=== PATIENT | female | born 1935 | race Caucasian/White ===

== ENCOUNTER 2018-04-10 17:50 | Observation (INO) | payer MEDICARE ==
[~2018-04-10] VITALS: Ht 167.6 cm; Wt 65.0 kg
[2018-04-10] MEDS ORDERED: IOHEXOL 350 MG/ML 10 ML VIAL (for RAD DIAG) IVCONTRAST ONE (17:51)
[2018-04-10 17:57] VITALS: BP 170/73; PULSE 74; RESP 14; TEMP 97.6; O2SAT 98
--- NOTE | 2018-04-10 18:16 | PD ---
HPI Chief Complaint: Chest Pain Time Seen by Provider: 18:07 Travel History International Travel<30 days: No Contact w/Intl Traveler<30days: No Traveled to known affect area: No History of Present Illness HPI 82yo F with PMH of parkinson's disease, trigeminal neuralgia on carbamazepine, HTN, rheumatoid arthritis presents to the ED with c/o midsternal chest pain that started about an hour ago. Said it was pressure, constant and associated with sob and nausea. She took a sublingual nitro, and then vomited and had a syncopal episode after. Pt had been having a frontal headache and bilateral neck pain since last night. Said the headache has resolved but still has neck pain. Denies any fever, cough, abdominal pain, focal weakness or numbness. Pt said she does have fibromyalgia and she does have neck pain sometimes. PFSH Past Medical History Cardiovascular Problems: Yes (HTN, ) Cerebrovascular Accident: Yes ?: Not Social History Tobacco Use: No Allergies-Medications (Allergen,Severity, Reaction): Coded Allergies: Penicillins (Verified Allergy, Severe, 04/10/18) aspirin (Verified Allergy, Severe, 04/10/18) Reported Meds & Prescriptions Reported Meds & Active Scripts Active Reported Clonidine 168 HR Patch (Clonidine HCl) Unknown Strength Patch 1 Patch T-DERMAL Q7D Fridays Aldactone (Spironolactone) 25 Mg Tab 25 Mg PO BID Nifedipine ER 24 HR (Nifedipine) 30 Mg Tab 30 Mg PO DAILY Tegretol (Carbamazepine) 200 Mg Tab 200 Mg PO BID Cipro (Ciprofloxacin HCl) 250 Mg Tab 250 Mg PO BID Prednisone 10 Mg Tab 10 Mg PO DAILY Eye Allergy Relief 0.025-0.3 % (Naphazoline W/ Pheniramine) 0.025 %-0.3 % Leny 1 Drop EACH EYE DAILY PRN Lyrica (Pregabalin) 100 Mg Cap 100 Mg PO DAILY Hydralazine (Hydralazine HCl) 100 Mg Tab 100 Mg PO TID Take with meals Plaquenil (Hydroxychloroquine Sulfate) 200 Mg Tab 200 Mg PO BID Take with food Sinemet (Carbidopa-Levodopa) 25-100 Mg Tab 1 Tab PO QID Eliquis (Apixaban) 5 Mg Tab 2.5 Mg PO BID Review of Systems Except as stated in HPI: all other systems reviewed are Neg Physical Exam Narrative GENERAL: 82yo F in mild distress. SKIN: Focused skin assessment warm/dry. HEAD: Atraumatic. Normocephalic. EYES: Pupils equal and round at 3mm bilaterally. EOMI. ENT: No nasal bleeding or discharge. Mucous membranes pink and moist. NECK: Diffuse ttp posterior neck. CARDIOVASCULAR: Regular rate and rhythm. No murmur appreciated. RESPIRATORY: No accessory muscle use. Clear to auscultation. Breath sounds equal bilaterally. GASTROINTESTINAL: Abdomen soft, non-tender, nondistended. MUSCULOSKELETAL: No obvious deformities. No clubbing. No cyanosis. No edema. NEUROLOGICAL: Awake and alert. No obvious cranial nerve deficits. Motor grossly within normal limits in all extremities. Sensation equal. Normal speech. PSYCHIATRIC: Appropriate mood and affect; insight and judgment normal. Data Data Last Documented VS Vital Signs Date Time Temp Pulse Resp B/P (MAP) Pulse Ox O2 Delivery O2 Flow Rate FiO2 04/10/18 19:42 97.9 72 13 179/79 (112) 99 Room Air Orders Orders Basic Metabolic Panel (Bmp) (04/10/18 18:07) Complete Blood Count With Diff (04/10/18 18:07) Magnesium (Mg) (04/10/18 18:07) Troponin I (04/10/18 18:07) Act Partial Throm Time (Ptt) (04/10/18 18:07) Prothrombin Time / Inr (Pt) (04/10/18 18:07) Chest, Single Ap (04/10/18 18:07) Acetaminophen (Tylenol) (04/10/18 18:30) Ondansetron Odt (Zofran Odt) (04/10/18 18:45) Ct Thorax/ Chest W Iv Contrast (04/10/18 ) Iohexol 350 Inj (Omnipaque 350 Inj) (04/10/18 17:51) Admit Order (Ed Use Only) (04/10/18 ) Urinalysis - C+S If Indicated (04/10/18 20:22) Place In Observation (04/10/18 ) Vital Signs (Adult) Q4H (04/10/18 20:22) Activity Oob With Assistance (04/10/18 20:22) Oriental Rug Stretcher / Telemetry .CONTINUOUS (04/10/18 20:22) Intake + Output SARATH.QSHIFT (04/10/18 20:22) Diet Heart Healthy (04/11/18 Breakfast) Sodium Chlor 0.9% 1000 Ml Inj (Ns 1000 M (04/10/18 20:22) Sodium Chloride 0.9% Flush (Ns Flush) (04/10/18 20:30) Sodium Chloride 0.9% Flush (Ns Flush) (04/10/18 21:00) Metoclopramide Inj (Reglan Inj) (04/10/18 20:30) Comprehensive Metabolic Panel (04/11/18 06:00) Complete Blood Count With Diff (04/11/18 06:00) Troponin I (04/11/18 00:00) Troponin I (04/11/18 06:00) Pt Request For Service (04/10/18 20:22) Case Management Consult (04/10/18 20:22) Scd Bilateral/Knee High SARATH.BID (04/10/18 20:22) Aldo Bilateral/Knee High SARATH.QSHIFT (04/10/18 20:24) Acetaminophen (Tylenol) (04/10/18 20:30) Acetamin-Hydrocod 325-5 Mg ([place] 5-325 (04/10/18 20:30) Acetamin-Hydrocod 325-10 Mg ([place] 10-32 (04/10/18 20:30) Docusate Sodium-Senna (Antoinette-Colace) (04/10/18 21:00) Magnesium Hydroxide Liq (Milk Of Magnesi (04/10/18 20:30) Sennosides (Senokot) (04/10/18 20:30) Bisacodyl Supp (Dulcolax Supp) (04/10/18 20:30) Lactulose Liq (Lactulose Liq) (04/10/18 20:30) Echo 2d Comp With Doppler (04/10/18 ) Carbamazepine (Tegretol) (04/10/18 21:00) Carbidopa-Levodopa 25-100 Mg (Sinemet 25 (04/10/18 21:00) Hydralazine (Apresoline) (04/11/18 09:00) Hydroxychloroquine (Plaquenil) (04/10/18 21:00) Nifedipine Sr (Procardia Xl) (04/11/18 09:00) Pregabalin (Lyrica) (04/11/18 09:00) Spironolactone (Aldactone) (04/10/18 21:00) Apixaban (Eliquis) (04/10/18 21:00) Labs Laboratory Tests Test 04/10/18 18:10 White Blood Count 4.1 TH/MM3 Red Blood Count 3.68 MIL/MM3 Hemoglobin 10.7 GM/DL Hematocrit 32.1 % Mean Corpuscular Volume 87.4 FL Mean Corpuscular Hemoglobin 29.2 PG Mean Corpuscular Hemoglobin Concent 33.4 % Red Cell Distribution Width 14.7 % Platelet Count 274 TH/MM3 Mean Platelet Volume 7.8 FL Neutrophils (%) (Auto) 65.2 % Lymphocytes (%) (Auto) 27.6 % Monocytes (%) (Auto) 6.3 % Eosinophils (%) (Auto) 0.1 % Basophils (%) (Auto) 0.8 % Neutrophils # (Auto) 2.7 TH/MM3 Lymphocytes # (Auto) 1.1 TH/MM3 Monocytes # (Auto) 0.3 TH/MM3 Eosinophils # (Auto) 0.0 TH/MM3 Basophils # (Auto) 0.0 TH/MM3 CBC Comment DIFF FINAL Differential Comment Prothrombin Time 10.3 SEC Prothromb Time International Ratio 1.0 RATIO Activated Partial Thromboplast Time 18.4 SEC Blood Urea Nitrogen 15 MG/DL Creatinine 1.13 MG/DL Random Glucose 144 MG/DL Calcium Level 8.4 MG/DL Magnesium Level 2.1 MG/DL Sodium Level 129 MEQ/L Potassium Level 4.0 MEQ/L Chloride Level 95 MEQ/L Carbon Dioxide Level 23.6 MEQ/L Anion Gap 10 MEQ/L Estimat Glomerular Filtration Rate 46 ML/MIN Troponin I LESS THAN 0.02 NG/ML [facility] Medical Decision Making Medical Screen Exam Complete: Yes Emergency Medical Condition: Yes Interpretation(s) EKG: NSR 72bpm. LAD. No ST segment elevation or depression. Differential Diagnosis Vasovagal syncope vs. ACS vs. tension headache vs. musculoskeletal pain Narrative Course 82yo F with episode of chest pain and then syncope. Labs reviewed, no leukocytosis. H/H 10.7/32.1. Troponin negative. CXR showed concern for mediastinal mass. Consider CT chest with IV thorax to further evaluate. Mild cardiomegaly. Pt given acetaminophen and zofran. CT chest ordered. Pt's daughter came after and said pt passed out and she caught her so she did not hit her head. Sign out to next team to follow up and admit for syncope. Diagnosis Primary Impression: Syncope Qualified Codes: R55 - Syncope and collapse Additional Impression: Chest pain Qualified Codes: R07.9 - Chest pain, unspecified Admitting Information Admitting Physician Requests: Lianne Hughes DO April 10, 2018 18:16
[2018-04-10 18:23] LABS: AUTOMATED NEUTROPHIL # 2.7 TH/MM3 (1.8-7.7); BASOPHIL % 0.8 % (0.0-2.0); EOSINOPHIL % 0.1 % (0.0-4.0); HEMATOCRIT 32.1 % (35.0-46.0); HEMOGLOBIN 10.7 GM/DL (11.6-15.3); LYMPH % 27.6 % (9.0-44.0); LYMPHOCYTE # 1.1 TH/MM3 (1.0-4.8); MEAN CELL VOLUME 87.4 FL (80.0-100.0); MEAN CORPUSCULAR HEMOGLOBIN 29.2 PG (27.0-34.0); MEAN CORPUSCULAR HGB CONC 33.4 % (32.0-36.0); MEAN PLATELET VOLUME 7.8 FL (7.0-11.0); MONO % 6.3 % (0.0-8.0); MONOCYTE # 0.3 TH/MM3 (0-0.9); NEUT % 65.2 % (16.0-70.0); PLATELET COUNT 274 TH/MM3 (150-450); RED BLOOD COUNT 3.68 MIL/MM3 (4.00-5.30); RED CELL DISTRIBUTION WIDTH 14.7 % (11.6-17.2); WHITE BLOOD COUNT 4.1 TH/MM3 (4.0-11.0)
[2018-04-10] MEDS ORDERED: ACETAMINOPHEN 325 MG TAB PO ONE (18:30)
[2018-04-10] MEDS ORDERED: ONDANSETRON ODT 4 MG TAB PO ONE (18:45)
[2018-04-10 18:52] LABS: PROTHROMBIN TIME - PATIENT 10.3 SEC (9.8-11.6)
[2018-04-10 18:57] LABS: BICARBONATE 23.6 MEQ/L (21.0-32.0); BLOOD UREA NITROGEN 15 MG/DL (7-18); CALCIUM 8.4 MG/DL (8.5-10.1); CHLORIDE 95 MEQ/L (98-107); CREATININE 1.13 MG/DL (0.50-1.00); GLOMERULAR FILTRATION RATE 46 ML/MIN (>89); GLUCOSE,RANDOM 144 MG/DL (74-106); MAGNESIUM 2.1 MG/DL (1.5-2.5); SODIUM (NA) 129 MEQ/L (136-145)
--- NOTE | 2018-04-10 18:57 | RADRPT ---
EXAM DATE: 04/10/2018 6:52 PM EDT AGE/SEX: 82 years / Female INDICATIONS: Syncope. Patient passed out today. CLINICAL DATA: This is the patient's initial encounter. Patient reports that signs and symptoms have been present for 1 day and indicates a pain score of 0/10. MEDICAL/SURGICAL HISTORY: Hypertension. None. COMPARISON: None. FINDINGS: A single portable frontal view the chest shows a focal masslike density involving the medial right up per lobe. There is displacement of the trachea towards the patient's left. The heart is mildly enlarg ed. Lungs are clear. No effusions. A degenerative and scoliotic thoracic spine. CONCLUSION: 1. Concern for mediastinal mass. Consider CT of the thorax with IV contrast to further evaluate. 2. Mild cardiomegaly. Electronically signed by: Willi Donaldson MD 04/10/2018 6:55 PM EDT
[2018-04-10 19:01] LABS: TROPONIN I LESS THAN 0.02 NG/ML (0.02-0.05)
[2018-04-10] MEDS ORDERED: LYRI100C PO (19:06)
[2018-04-10] MEDS ORDERED: CLON0.1D T-DERMAL (19:06)
[2018-04-10] MEDS ORDERED: APIX5TAB PO (19:06)
[2018-04-10] MEDS ORDERED: EYESOL EACH EYE (19:06)
[2018-04-10] MEDS ORDERED: PLAQ200T PO (19:06)
[2018-04-10] MEDS ORDERED: TEGR200T PO (19:06)
[2018-04-10] MEDS ORDERED: HYDR-3801 PO (19:06)
[2018-04-10] MEDS ORDERED: PRED10 PO (19:06)
[2018-04-10] MEDS ORDERED: SPIR25 PO (19:06)
[2018-04-10] MEDS ORDERED: CIPR250T52 PO (19:06)
[2018-04-10] MEDS ORDERED: SINE25TA PO (19:06)
[2018-04-10] MEDS ORDERED: NIFE30TA61 PO (19:06)
[2018-04-10 19:42] VITALS: BP 179/79; PULSE 72; RESP 13; TEMP 97.9; O2SAT 99
--- NOTE | 2018-04-10 20:01 | RADRPT ---
EXAM DATE: 04/10/2018 7:34 PM EDT AGE/SEX: 82 years / Female INDICATIONS: Chest pain and shortness of breath. CLINICAL DATA: This is the patient's initial encounter. Patient reports that signs and symptoms have been present for 1 day and indicates a pain score of 4/10. MEDICAL/SURGICAL HISTORY: Hypertension. Cardiovascular disease. Cerebrovascular disease. Pulmona ry embolism, Fibromyalgia, Trigeminal neuralgia, Parkinson's. Hysterectomy. RADIATION DOSE: 6.49 CTDI (mGy) COMPARISON: No prior [place] exams available for comparison. TECHNIQUE: Multiple contiguous axial images were obtained through the chest during bolus infusion of 75 ml Omnipaque 350 (iohexol) nonionic water-soluble contrast as a single exam dose. Images were obtained in suspended respiration using multiple row detector helical technique. Using automated exp osure control and adjustment of the mA and/or kV according to patient size, radiation dose was kept a s low as reasonably achievable to obtain optimal diagnostic quality images. FINDINGS: Lungs: A 5 mm nodule is identified in the left lower lobe. There is no evidence of acute airspace di sease. Mediastinum: A superior mediastinal mass characteristic of a large goiter is identified. There is go od visualization of the great vessels of the middle mediastinum. No other evidence of mediastinal or hilar adenopathy/mass. Pleurae: No evidence of focal thickening or pleural effusion. Axillae: Unremarkable. Bony Structures: Unremarkable. Miscellaneous: Multiple hepatic cysts ranging in size up to 3.5 cm are noted. CONCLUSION: 1. 5 mm left lower lobe pulmonary nodule; 6 month follow up recommended. 2. No evidence of acute cardiopulmonary process. 3. 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 4. Multiple hepatic cysts. Electronically signed by: Mega Archer MD 04/10/2018 7:59 PM EDT
[2018-04-10] MEDS ORDERED: LACTULOSE SYRUP 20 GM/30 ML CUP PO PRN (20:30)
[2018-04-10] MEDS ORDERED: SENNOSIDES 8.6 MG TAB PO PRN (20:30)
[2018-04-10] MEDS ORDERED: ACETAMINOPHEN/HYDROcodone 325 MG/5 MG TAB PO PRN (20:30)
[2018-04-10] MEDS ORDERED: ACETAMINOPHEN 325 MG TAB PO PRN (20:30)
[2018-04-10] MEDS ORDERED: BISACODYL 10 MG SUPP RECTAL PRN (20:30)
[2018-04-10] MEDS ORDERED: ACETAMINOPHEN/HYDROcodone 325 MG/10 MG TAB PO PRN (20:30)
[2018-04-10] MEDS ORDERED: METOCLOPRAMIDE HCL 10 MG/2 ML VIAL IV PUSH PRN (20:30)
[2018-04-10] MEDS ORDERED: MAGNESIUM HYDROXIDE SUSP 30 ML CUP PO PRN (20:30)
[2018-04-10] MEDS ORDERED: SODIUM CHLORIDE 0.9% FLUSH 10 ML FLUSH IV FLUSH PRN (20:30)
[2018-04-10 21:44] VITALS: BP 170/74; PULSE 85; RESP 18; TEMP 98.2; O2SAT 95
[2018-04-10] MEDS: SODIUM CHLOR 0.9% 1000 ML INJ 1,000 ML IV SCH (21:51)
[2018-04-10] MEDS: carBAMazepine 200 MG TAB PO SCH (21:52)
[2018-04-10] MEDS: DOCUSATE SODIUM 50 MG/SENNA 8.6 MG TAB PO SCH (21:52)
[2018-04-10] MEDS: SPIRONOLACTONE 25 MG TAB PO SCH (21:52)
[2018-04-10] MEDS: CARBIDOPA/LEVODOPA 25 MG/100 MG TAB PO SCH (21:52)
[2018-04-10] MEDS: HYDROXYCHLOROQUINE SULFATE 200 MG TAB PO SCH (21:52)
[2018-04-10] MEDS: APIXABAN 2.5 MG TABLET PO SCH (21:53)
[2018-04-10] MEDS: SODIUM CHLORIDE 0.9% FLUSH 10 ML FLUSH IV FLUSH SCH (21:53)
[2018-04-10] MEDS ORDERED: ALPRAZolam 0.5 MG TAB PO PRN (22:45)
[2018-04-11] VITALS (11 sets, daily range): BP systolic 124–207; BP diastolic 59–92; PULSE 58–99; RESP 16–18; TEMP 97.6–98.8; O2SAT 92–100
--- NOTE | 2018-04-11 00:39 | HHI.HP ---
HPI Service [facility] Primary Care Physician Non-Staff Admission Diagnosis Syncope Diagnoses: (1) Syncope Diagnosis: Principal (2) Dehydration Diagnosis: Principal (3) HTN (hypertension) Diagnosis: Principal Travel History International Travel<30 Days: No Contact w/Intl Traveler <30 Da: No Traveled to Known Affected Are: No History of Present Illness This is an 82-year-old female with a PMH of HTN, Parkinson, Rheumatoid Arthritis and Trigeminal Neuralgia was brought to the ER by EMS after syncopal event. Pt states she was out by the pool with her daughters today, then went to dinner and had sudden syncopal event while sitting at the table. No dizziness, no chest pain, no SOB prior to event. Reports h/o similar event several years ago but no work up at that time. On arrival, BP 170/73, HR 74, O2 sat 98% on RA, Afebrile. Hgb 10.7. Na 129, Creatinine 1.13, no previous labs for comparison. Trop negative. Review of Systems Except as stated in HPI: all other systems reviewed are Neg ROS: 14 point review of systems otherwise negative. Past Family Social History Past Medical History PMH: HTN, Parkinson, Rheumatoid Arthritis and Trigeminal Neuralgia Past Surgical History PAST SURGICAL HISTORY: Hysterectomy Allergies: Coded Allergies: Penicillins (Verified Allergy, Severe, 04/10/18) aspirin (Verified Allergy, Severe, 04/10/18) Family History PAST FAMILY HISTORY: Reviewed. No h/o DM or CAD Social History PAST SOCIAL HISTORY: Negative for alcohol, tobacco or drugs Physical Exam Vital Signs Vital Signs Date Time Temp Pulse Resp B/P (MAP) Pulse Ox O2 Delivery O2 Flow Rate FiO2 04/11/18 00:22 98.1 78 17 174/74 (107) 96 04/10/18 23:40 18 04/10/18 21:44 98.2 85 18 170/74 (106) 95 04/10/18 19:42 97.9 72 13 179/79 (112) 99 Room Air 04/10/18 17:57 97.6 74 14 170/73 (105) 98 Physical Exam PE: GENERAL: Very pleasant elderly in no acute distress. +Sunburn HEENT: PERRLA, EOMI. No scleral icterus or conjunctival pallor. No lid lag or facial droop. CARDIOVASCULAR: Regular rate and rhythm. No obvious murmurs to auscultation. No chest tenderness to palpation. RESPIRATORY: No obvious rhonchi or wheezing. Clear to auscultation. Breath sounds equal bilaterally. GASTROINTESTINAL: Abdomen soft, non-tender, nondistended. BS normal. MUSCULOSKELETAL: Extremities without clubbing, cyanosis, or edema. No obvious deformities. NEUROLOGICAL: Awake, alert and oriented x4. No focal neurologic deficits. Moving both upper and lower extremities spontaneously. Laboratory Laboratory Tests Test 04/10/18 18:10 04/10/18 23:43 White Blood Count 4.1 Red Blood Count 3.68 Hemoglobin 10.7 Hematocrit 32.1 Mean Corpuscular Volume 87.4 Mean Corpuscular Hemoglobin 29.2 Mean Corpuscular Hemoglobin Concent 33.4 Red Cell Distribution Width 14.7 Platelet Count 274 Mean Platelet Volume 7.8 Neutrophils (%) (Auto) 65.2 Lymphocytes (%) (Auto) 27.6 Monocytes (%) (Auto) 6.3 Eosinophils (%) (Auto) 0.1 Basophils (%) (Auto) 0.8 Neutrophils # (Auto) 2.7 Lymphocytes # (Auto) 1.1 Monocytes # (Auto) 0.3 Eosinophils # (Auto) 0.0 Basophils # (Auto) 0.0 CBC Comment DIFF FINAL Differential Comment Prothrombin Time 10.3 Prothromb Time International Ratio 1.0 Activated Partial Thromboplast Time 18.4 Blood Urea Nitrogen 15 Creatinine 1.13 Random Glucose 144 Calcium Level 8.4 Magnesium Level 2.1 Sodium Level 129 Potassium Level 4.0 Chloride Level 95 Carbon Dioxide Level 23.6 Anion Gap 10 Estimat Glomerular Filtration Rate 46 Troponin I LESS THAN 0.02 Result Diagram: 04/10/18180904/10/181809 Caprini VTE Risk Assessment Caprini VTE Risk Assessment: No/Low Risk (score <= 1) Caprini Risk Assessment Model Point Value = 1 Point Value = 2 Point Value = 3 Point Value = 5 Age 41-60 Minor surgery BMI > 25 kg/m2 Swollen legs Varicose veins or History of unexplained or recurrent spontaneous Oral contraceptives or hormone replacement Sepsis (< 1 month) Serious lung disease, including pneumonia (< 1 month) Abnormal pulmonary function Acute myocardial infarction Congestive heart failure (< 1 month) History of inflammatory bowel disease Medical patient at bed rest Age 61-74 Arthroscopic surgery Major open surgery (> 45 min) Laparoscopic surgery (> 45 min) Malignancy Confined to bed (> 72 hours) Immobilizing plaster cast Central venous access Age >= 75 History of VTE Family history of VTE Factor V Leiden Prothrombin [id number] Lupus anticoagulant Anticardiolipin antibodies Elevated serum homocysteine Heparin-induced thrombocytopenia Other congenital or acquired thrombophilia Stroke (< 1 month) Elective arthroplasty Hip, pelvis, or leg fracture Acute spinal cord injury (< 1 month) Prophylaxis Regimen Total Risk Factor Score Risk Level Prophylaxis Regimen 0-1 Low Early ambulation 2 Moderate Order ONE of the following: *Sequential Compression Device (SCD) *Heparin 5000 units SQ BID 3-4 Higher Order ONE of the following medications: *Heparin 5000 units SQ TID *Enoxaparin/Lovenox 40 mg SQ daily (WT < 150 kg, CrCl > 30 mL/min) *Enoxaparin/Lovenox 30 mg SQ daily (WT < 150 kg, CrCl > 10-29 mL/min) *Enoxaparin/Lovenox 30 mg SQ BID (WT < 150 kg, CrCl > 30 mL/min) AND/OR *Sequential Compression Device (SCD) 5 or more Highest Order ONE of the following medications: *Heparin 5000 units SQ TID (Preferred with Epidurals) *Enoxaparin/Lovenox 40 mg SQ daily (WT < 150 kg, CrCl > 30 mL/min) *Enoxaparin/Lovenox 30 mg SQ daily (WT < 150 kg, CrCl > 10-29 mL/min) *Enoxaparin/Lovenox 30 mg SQ BID (WT < 150 kg, CrCl > 30 mL/min) AND *Sequential Compression Device (SCD) Assessment and Plan Problem List: (1) Syncope ICD Code: R55 - Syncope and collapse Status: Acute (2) Dehydration ICD Code: E86.0 - Dehydration (3) HTN (hypertension) ICD Code: I10 - Essential (primary) hypertension Assessment and Plan A/P: 1. Syncope: acute syncopal event, no dizziness/chest pain. Initial trop negative. Admit for Observation, telemetry, check serial cardiac enzymes to eval for underlying ischemia, check Echo to eval for valvular abnormality 2. Dehydration: Creatinine 1.13, no previous labs for comparison. Check U/a to eval for UTI. IVF for hydration, repeat labs in am. 3. HTN: Uncontrolled. BP 170's, resume home medications, monitor BP, antihypertensives for BP >180 4. DVT Prophylaxis: SCD/Teds 5. Social work for d/c planning as needed. 6. Case discussed w/ ER physician at length, labs/records/imaging reviewed by me. Problem Qualifiers (1) Syncope: Qualified Codes: R55 - Syncope and collapse Hali Brewster MD April 11, 2018 00:39
[2018-04-11] MEDS: SODIUM CHLOR 0.9% 1000 ML INJ 1,000 ML IV SCH ×2 (06:22→17:10)
[2018-04-11] MEDS ORDERED: DEXTROSE 50% IN WATER 50 ML VIAL(D50) IV PUSH PRN (08:00)
[2018-04-11] MEDS ORDERED: ONDANSETRON ODT 4 MG TAB PO PRN (08:00)
[2018-04-11] MEDS ORDERED: NAPHAZOLINE EACH EYE PRN (08:00)
[2018-04-11] MEDS ORDERED: PHENIRAMINE EACH EYE PRN (08:00)
[2018-04-11] MEDS ORDERED: [UNRECOGNIZED DRUG - OTHER] EACH EYE PRN (08:00)
[2018-04-11] MEDS: INSULIN ASPART SUPPLEMENTAL SCALE SQ SCH ×4 (08:00→21:00)
[2018-04-11] MEDS ORDERED: GLUCAGON 1 MG/ML VIAL OTHER PRN (08:00)
[2018-04-11] MEDS: PREGABALIN 100 MG CAP PO SCH (08:40)
[2018-04-11] MEDS: DOCUSATE SODIUM 50 MG/SENNA 8.6 MG TAB PO SCH ×2 (08:40→21:23)
[2018-04-11] MEDS: predniSONE 10 MG TAB PO SCH (08:40)
[2018-04-11] MEDS: CARBIDOPA/LEVODOPA 25 MG/100 MG TAB PO SCH ×4 (08:40→21:24)
[2018-04-11] MEDS: carBAMazepine 200 MG TAB PO SCH ×2 (08:40→21:00)
[2018-04-11] MEDS: hydrALAZINE HCL 100 MG TAB PO SCH ×3 (08:40→17:05)
[2018-04-11] MEDS: NIFEdipine 30 MG SUSTAINED RELEASE TAB PO SCH (08:40)
[2018-04-11] MEDS: SODIUM CHLORIDE 0.9% FLUSH 10 ML FLUSH IV FLUSH SCH ×2 (08:40→21:00)
[2018-04-11] MEDS: LIDOCAINE HCL 5% PATCH T-DERMAL SCH (08:41)
[2018-04-11] MEDS: SPIRONOLACTONE 25 MG TAB PO SCH ×2 (08:41→21:24)
[2018-04-11] MEDS: APIXABAN 2.5 MG TABLET PO SCH ×2 (08:41→21:24)
[2018-04-11] MEDS: HYDROXYCHLOROQUINE SULFATE 200 MG TAB PO SCH ×2 (08:41→21:24)
[2018-04-11 09:03] LABS: AUTOMATED NEUTROPHIL # 2.2 TH/MM3 (1.8-7.7); EOSINOPHIL % 1.1 % (0.0-4.0); HEMATOCRIT 30.9 % (35.0-46.0); HEMOGLOBIN 10.4 GM/DL (11.6-15.3); LYMPH % 32.8 % (9.0-44.0); LYMPHOCYTE # 1.3 TH/MM3 (1.0-4.8); MEAN CELL VOLUME 87.6 FL (80.0-100.0); MEAN CORPUSCULAR HEMOGLOBIN 29.6 PG (27.0-34.0); MEAN CORPUSCULAR HGB CONC 33.8 % (32.0-36.0); MEAN PLATELET VOLUME 7.5 FL (7.0-11.0); MONOCYTE # 0.5 TH/MM3 (0-0.9); NEUT % 53.1 % (16.0-70.0); PLATELET COUNT 266 TH/MM3 (150-450); RED BLOOD COUNT 3.52 MIL/MM3 (4.00-5.30); RED CELL DISTRIBUTION WIDTH 14.5 % (11.6-17.2); WHITE BLOOD COUNT 4.1 TH/MM3 (4.0-11.0)
[2018-04-11 09:25] LABS: ALBUMIN 3.1 GM/DL (3.4-5.0); AST (GOT) 12 U/L (15-37); BICARBONATE 25.9 MEQ/L (21.0-32.0); BLOOD UREA NITROGEN 13 MG/DL (7-18); CALCIUM 8.4 MG/DL (8.5-10.1); CHLORIDE 98 MEQ/L (98-107); CREATININE 1.05 MG/DL (0.50-1.00); GLOMERULAR FILTRATION RATE 50 ML/MIN (>89); GLUCOSE,RANDOM 85 MG/DL (74-106); SODIUM (NA) 131 MEQ/L (136-145)
[2018-04-11 09:26] LABS: ALT (GPT) 7 U/L (10-53)
[2018-04-11 09:31] LABS: ALKALINE PHOSPHATASE 58 U/L (45-117); TOTAL BILIRUBIN ADULT 0.4 MG/DL (0.2-1.0); TOTAL PROTEIN 5.6 GM/DL (6.4-8.2); TROPONIN I 0.03 NG/ML (0.02-0.05)
--- NOTE | 2018-04-11 10:08 | PD.CONS ---
HPI Service cardiology Consult Requested By Reason for Consult syncope, chest pain Primary Care Physician Non-Staff History of Present Illness 82 yo F with Parkinson disease, rheumatoid arthritis, uncontrolled HTN and history of DVT/PE several years ago currently anticoagulated and followed by assurance auditor in [place] who was visiting family yesterday and had a syncopal event. She reports feeling sudden nonexertional chest tightness yesterday with associated elevated BP; she took one nitro and began to experience blurry vision soon after with syncope while walking to her car with a family member. She did not hit her head. She denies SOB or palpitations. In the ED her EKG did not show concerning ST segment or T wave changes; troponin level normal. Her SBP is elevated this morning 207/92; she has been given hydralazine 100mg TID, nifedipine and spironolactone. Review of telemetry shows no event. She reports having had a stress test and normal cardiac catheterization last year in [place]. Currently resting comfortably; she reports chronic, stable epigastric tightness/burning. CT scan reveals 5mm left lower lobe nodule (Tonia Triplett) Review of Systems Consitutional: DENIES: Fatigue, Fever, Chills, Weight gain, Weight loss Respiratory: DENIES: Cough, Snoring, Shortness of breath, Wheezing, Sputum production Cardiovascular: COMPLAINS OF: Syncope, DENIES: Palpitations, Tachycardia Gastrointestinal: DENIES: Nausea, Vomiting, Change in bowel habits, Reflux, Bloody stools, Melena (Tonia Triplett) Past Family Social History Allergies: Coded Allergies: Penicillins (Verified Allergy, Severe, 04/10/18) aspirin (Verified Allergy, Severe, 04/10/18) Past Medical History HTN, Parkinson, Rheumatoid Arthritis and Trigeminal Neuralgia Past Surgical History Hysterectomy Reported Medications Reported Meds & Active Scripts Active Reported Clonidine 168 HR Patch (Clonidine HCl) Unknown Strength Patch 1 Patch T-DERMAL Q7D Fridays Aldactone (Spironolactone) 25 Mg Tab 25 Mg PO BID Nifedipine ER 24 HR (Nifedipine) 30 Mg Tab 30 Mg PO DAILY Tegretol (Carbamazepine) 200 Mg Tab 200 Mg PO BID Cipro (Ciprofloxacin HCl) 250 Mg Tab 250 Mg PO BID Prednisone 10 Mg Tab 10 Mg PO DAILY Eye Allergy Relief 0.025-0.3 % (Naphazoline W/ Pheniramine) 0.025 %-0.3 % Leny 1 Drop EACH EYE DAILY PRN Lyrica (Pregabalin) 100 Mg Cap 100 Mg PO DAILY Hydralazine (Hydralazine HCl) 100 Mg Tab 100 Mg PO TID Take with meals Plaquenil (Hydroxychloroquine Sulfate) 200 Mg Tab 200 Mg PO BID Take with food Sinemet (Carbidopa-Levodopa) 25-100 Mg Tab 1 Tab PO QID Eliquis (Apixaban) 5 Mg Tab 2.5 Mg PO BID Active Ordered Medications Current Medications Medications (Trade) Dose Ordered Sig/Armando Route Start Time Stop Time Status Last Admin Sodium Chloride 1,000 ml @ 100 mls/hr Q10H IV 04/10/18 20:22 04/11/18 06:22 (NS Flush) 2 ml UNSCH PRN IV FLUSH 04/10/18 20:30 (NS Flush) 2 ml BID IV FLUSH 04/10/18 21:00 04/11/18 08:40 (Reglan Inj) 5 mg Q6H PRN IV PUSH 04/10/18 20:30 (Tylenol) 650 mg Q6H PRN PO 04/10/18 20:30 (Agness 5-325 Mg) 1 tab Q4H PRN PO 04/10/18 20:30 (Agness 10-325 Mg) 1 tab Q4H PRN PO 04/10/18 20:30 04/10/18 22:33 (Antoinette-Colace) 1 tab BID PO 04/10/18 21:00 04/11/18 08:40 (Milk Of Magnesia Liq) 30 ml Q12H PRN PO 04/10/18 20:30 (Senokot) 17.2 mg Q12H PRN PO 04/10/18 20:30 (Dulcolax Supp) 10 mg DAILY PRN RECTAL 04/10/18 20:30 (Lactulose Liq) 30 ml DAILY PRN PO 04/10/18 20:30 (Eliquis) 2.5 mg BID PO 04/10/18 21:00 04/11/18 08:41 (TEGretol) 200 mg BID PO 04/10/18 21:00 04/11/18 08:40 (Sinemet 25-100 Mg) 1 tab QID PO 04/10/18 21:00 04/11/18 08:40 (Apresoline) 100 mg TID PO 04/11/18 09:00 04/11/18 08:40 (Plaquenil) 200 mg BID PO 04/10/18 21:00 04/11/18 08:41 (Procardia Xl) 30 mg DAILY PO 04/11/18 09:00 04/11/18 08:40 (Lyrica) 100 mg DAILY PO 04/11/18 09:00 04/11/18 08:40 (Aldactone) 25 mg BID PO 04/10/18 21:00 04/11/18 08:41 (Xanax) 0.5 mg BID PRN PO 04/10/18 22:45 (Deltasone) 10 mg DAILY PO 04/11/18 09:00 04/11/18 08:40 Patient Own Medication PT OWN MED: EYE JARAD... DAILY PRN EACH EYE 04/11/18 08:00 Future Hold (Zofran Odt) 4 mg Q8HR PRN PO 04/11/18 08:00 04/11/18 08:40 (Lidoderm 5% Patch.12 Hr) 1 patch DAILY T-DERMAL 04/11/18 09:00 04/11/18 08:41 (D50w (Vial) Inj) 50 ml UNSCH PRN IV PUSH 04/11/18 08:00 (Glucagon Inj) 1 mg UNSCH PRN OTHER 04/11/18 08:00 (NovoLOG SUPPLEMENTAL SCALE) 1 ACHS SLIDING SCALE SQ 04/11/18 08:00 Miscellaneous Information 1 Q24H T-DERMAL 04/11/18 21:00 Family History Reviewed. No h/o DM or CAD Social History Negative for alcohol, tobacco or drugs (Tonia Triplett) Physical Exam Vital Signs Vital Signs Date Time Temp Pulse Resp B/P (MAP) Pulse Ox O2 Delivery O2 Flow Rate FiO2 04/11/18 08:54 97.6 74 18 207/92 (130) 96 04/11/18 03:40 97.9 66 18 176/77 (110) 100 04/11/18 03:35 58 04/11/18 00:22 98.1 78 17 174/74 (107) 96 04/11/18 00:11 59 04/10/18 23:40 18 04/10/18 21:44 98.2 85 18 170/74 (106) 95 04/10/18 19:42 97.9 72 13 179/79 (112) 99 Room Air 04/10/18 17:57 97.6 74 14 170/73 (105) 98 Physical Exam GENERAL: SKIN: Warm and dry. HEAD: Atraumatic. Normocephalic. EYES: Pupils equal and round. No scleral icterus. ENT: No nasal bleeding or discharge. NECK: Trachea midline. No JVD. CARDIOVASCULAR: Regular rate and rhythm. no murmurs RESPIRATORY: No accessory muscle use. Clear to auscultation. Breath sounds equal bilaterally. GASTROINTESTINAL: Abdomen soft, non-tender, nondistended. MUSCULOSKELETAL: Extremities without clubbing, cyanosis, or edema. No obvious deformities. NEUROLOGICAL: Awake and alert. No obvious cranial nerve deficits. Normal speech. PSYCHIATRIC: Appropriate mood and affect; insight and judgment normal. Laboratory Laboratory Tests Test 04/10/18 18:10 04/10/18 23:43 04/11/18 07:55 White Blood Count 4.1 4.1 Red Blood Count 3.68 3.52 Hemoglobin 10.7 10.4 Hematocrit 32.1 30.9 Mean Corpuscular Volume 87.4 87.6 Mean Corpuscular Hemoglobin 29.2 29.6 Mean Corpuscular Hemoglobin Concent 33.4 33.8 Red Cell Distribution Width 14.7 14.5 Platelet Count 274 266 Mean Platelet Volume 7.8 7.5 Neutrophils (%) (Auto) 65.2 53.1 Lymphocytes (%) (Auto) 27.6 32.8 Monocytes (%) (Auto) 6.3 12.0 Eosinophils (%) (Auto) 0.1 1.1 Basophils (%) (Auto) 0.8 1.0 Neutrophils # (Auto) 2.7 2.2 Lymphocytes # (Auto) 1.1 1.3 Monocytes # (Auto) 0.3 0.5 Eosinophils # (Auto) 0.0 0.0 Basophils # (Auto) 0.0 0.0 CBC Comment DIFF FINAL DIFF FINAL Differential Comment Prothrombin Time 10.3 Prothromb Time International Ratio 1.0 Activated Partial Thromboplast Time 18.4 Blood Urea Nitrogen 15 13 Creatinine 1.13 1.05 Random Glucose 144 85 Calcium Level 8.4 8.4 Magnesium Level 2.1 Sodium Level 129 131 Potassium Level 4.0 3.8 Chloride Level 95 98 Carbon Dioxide Level 23.6 25.9 Anion Gap 10 7 Estimat Glomerular Filtration Rate 46 50 Troponin I LESS THAN 0.02 0.07 0.03 Total Protein 5.6 Albumin 3.1 Alkaline Phosphatase 58 Aspartate Amino Transf (AST/SGOT) 12 Alanine Aminotransferase (ALT/SGPT) 7 Total Bilirubin 0.4 (Tonia Triplett) Result Diagram: 04/11/18 0755 04/11/18 0755 Imaging Last 48 hours Impressions Chest X-Ray 04/10/18 1807 Signed Impressions: CONCLUSION: 1. Concern for mediastinal mass. Consider CT of the thorax with IV contrast to further evaluate. 2. Mild cardiomegaly. Chest CT 04/10/18 0000 Signed Impressions: CONCLUSION: 1. 5 mm left lower lobe pulmonary nodule; 6 month follow up recommended. 2. No evidence of acute cardiopulmonary process. 3. 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 4. Multiple hepatic cysts. (Tonia Triplett) Assessment and Plan Problem List: (1) Syncope ICD Codes: R55 - Syncope and collapse Status: Acute (2) Chest pain ICD Codes: R07.9 - Chest pain, unspecified Status: Acute (3) HTN (hypertension) ICD Codes: I10 - Essential (primary) hypertension Assessment and Plan 82 yo F with Parkinson disease, rheumatoid arthritis, uncontrolled HTN and history of DVT/PE several years ago currently anticoagulated and followed by assurance auditor in [place] who was visiting family yesterday and had a syncopal event. She reports feeling sudden nonexertional chest tightness yesterday with associated elevated BP; she took one nitro and began to experience blurry vision soon after with syncope while walking to her car with a family member. syncope- with associated chest pain 2D echo ordered trop mild elevation, 0.02 --> 0.07 --> 0.03 no events on tele she reports normal ischemic evaluation by assurance auditor last year including cardiac catheterization consider outpatient event monitoring HTN- uncontrolled, on chronic prednisone for R.A. cont hydralazine and nifedipine DVT/PE- several years ago, [place] Left lung nodule- outpatient follow up, repeat CT in 6 months (Tonia Triplett) Assessment and Plan lexiscan - if negative, outpatient event monitor (Minor,Ashok E. MD) Problem Qualifiers (1) Syncope: Qualified Codes: R55 - Syncope and collapse Tonia Triplett April 11, 2018 10:08 Ashok Humphreys MD April 11, 2018 10:15
[2018-04-11 10:16] LABS: CHOLESTEROL 185 MG/DL (120-200); TRIGLYCERIDES 78 MG/DL (42-150)
[2018-04-11 10:25] LABS: CHOLESTEROL/ HDL RATIO 2.68 RATIO; LDL CHOLESTEROL 100 MG/DL (0-99)
--- NOTE | 2018-04-11 10:40 | HHI.PR ---
Subjective Remarks Follow-up on patient with nonexertional chest tightness with elevated BP followed by syncopal episode after taking nitro. Additionally, patient had not eaten anything since breakfast and had been outside walking around. Patient seen and examined. Patient denies any complaints of chest pain at this time. She does complain of left-sided neck pain which she states is due to her fibromyalgia not receiving her normal nighttime Lyrica dose. She is complaining of nausea and is requesting Zofran specifically. She denies any shortness of breath. She denies any complaints of abdominal pain. She denies any urinary difficulties, diarrhea or constipation. Lengthy discussion with the patient and 2 daughters were at the bedside. Patient has a ribbon blocker that she follows with in [place]. She underwent a stress test and normal cardiac catheterization last year. She denies any change in her medications. They are also well aware of the left lower lobe nodule is followed closely on outpatient basis. Objective Vitals Vital Signs Date Time Temp Pulse Resp B/P (MAP) Pulse Ox O2 Delivery O2 Flow Rate FiO2 04/11/18 10:11 180/84 (116) 04/11/18 08:54 97.6 74 18 207/92 (130) 96 04/11/18 03:40 97.9 66 18 176/77 (110) 100 04/11/18 03:35 58 04/11/18 00:22 98.1 78 17 174/74 (107) 96 04/11/18 00:11 59 04/10/18 23:40 18 04/10/18 21:44 98.2 85 18 170/74 (106) 95 04/10/18 19:42 97.9 72 13 179/79 (112) 99 Room Air 04/10/18 17:57 97.6 74 14 170/73 (105) 98 Result Diagram: 04/11/18 0755 04/11/18 0755 Imaging Last Impressions Chest X-Ray 04/10/18 1807 Signed Impressions: CONCLUSION: 1. Concern for mediastinal mass. Consider CT of the thorax with IV contrast to further evaluate. 2. Mild cardiomegaly. Chest CT 04/10/18 0000 Signed Impressions: CONCLUSION: 1. 5 mm left lower lobe pulmonary nodule; 6 month follow up recommended. 2. No evidence of acute cardiopulmonary process. 3. 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 4. Multiple hepatic cysts. Objective Remarks GENERAL: Well-developed well-nourished elderly female, in no acute distress. +Sunburn. Awake and alert. Daughters are at the bedside. HEENT: NC/AT. PERRLA, EOMI. No scleral icterus or conjunctival pallor. No lid lag or facial droop. No nasal drainage. Airway patent. MMM. CARDIOVASCULAR: Regular rate and rhythm. No obvious murmurs to auscultation. No chest tenderness to palpation. RESPIRATORY: Nonlabored. Clear to auscultation. Breath sounds equal bilaterally. No wheezing or rhonchi appreciated. GASTROINTESTINAL: Abdomen soft, non-tender, nondistended. BS normal. MUSCULOSKELETAL: Extremities without clubbing, cyanosis, or edema. No obvious deformities. NEUROLOGICAL: Awake, alert and oriented x4. Able to move all extremities spontaneously. Motor and sensory functions grossly intact. No focal neurologic deficits. Normal speech. PSYCHIATRIC: Appropriate mood and affect. Normal judgment and insight. Procedures None A/P Problem List: (1) Syncope ICD Code: R55 - Syncope and collapse Status: Acute (2) Dehydration ICD Code: E86.0 - Dehydration (3) HTN (hypertension) ICD Code: I10 - Essential (primary) hypertension Assessment and Plan 82-year-old female with past medical history of hypertension, rheumatoid arthritis on immunosuppressive therapy with prednisone, Parkinson's, hx of DVT/ PE on Eliquis and trigeminal neuralgia admitted with chest tightness, elevated blood pressure and syncopal episode. Chest tightness in light of elevated BP Trop bumped up to 0.07 -Consult cardiology, appreciate assistance. Plan for myocardial perfusion study and if negative recommends outpatient event monitor -2D echo ordered -Continue to monitor on cardiac telemetry Hypertension, uncontrolled -Continue patient on home dose of hydralazine, nifedipine, aldactone and clonidine patch -Continue to monitor BP and adjust treatment accordingly Hyponatremia, chronic, asymptomatic -Continue on IV fluids -Monitor sodium level EMY on suspected CKD, likely secondary to dehydration No baseline labs in system for comparison Creatinine 1.13, improved 1.05 -Continue on IV fluids -Avoid nephrotoxic agents -Continue to monitor kidney function History of DVT/PE 4 years ago -Continue patient on home dose of Eliquis Rheumatoid arthritis on chronic immunosuppressive therapy with prednisone and Plaquenil -Resume patient's home dose of prednisone 10 mg daily Fibromyalgia Patient complaining of left-sided neck pain -Continue patient on home dose of Lyrica 100 mg -Trial of Lidoderm patch to left side of neck Parkinson's -Continue patient on home dose of Sinemet -PT eval/tx -fall precautions Trigeminal neuralgia -Continue patient on home dose of Tegretol Left lung nodule, incidental finding Patient and family are well aware and have been following as an outpatient Chest CT shows 5 mm left lower lobe pulmonary nodule; 6 month follow up recommended and large thyroid goiter -Recommend repeat CT in 6 months -Obtain TSH level DVT prophylaxis -Patient is on Eliquis Problem Qualifiers (1) Syncope: Qualified Codes: R55 - Syncope and collapse Marj Avalos April 11, 2018 10:40
[2018-04-11] MEDS ORDERED: REGADENOSON INJ 0.4 MG/5 ML SYR ONE (12:49)
--- NOTE | 2018-04-11 13:12 | EKG ---
Date Performed: 04/10/2018 Time Performed: 17:58:33 PTAGE: 82 years EKG: Sinus rhythm NORMAL ECG NO PREVIOUS TRACING DOCTOR: Андрей Moore Interpretating Date/Time 04/11/2018 13:12:02
[2018-04-11 15:01] LABS: HEMOGLOBIN A1C 5.3 % (4.3-6.0)
--- NOTE | 2018-04-11 15:15 | RADRPT ---
EXAM DATE: 04/11/2018 1:58 PM EDT AGE/SEX: 82 years / Female INDICATIONS:Angina. . Midsternal chest pain with dyspnea and nausea. Syncope. CLINICAL DATA: This is the patient's initial encounter. Patient reports that signs and symptoms have been present for 1 day and indicates a pain score of 5/10. MEDICAL/SURGICAL HISTORY: Hypertension. Hypercholesterolemia. Parkinson's disease. Hysterecto my. COMPARISON: None. DOSE: 27.1 mCi Tc 99m Myoview at stress 8.6 mCi [id number] at rest 0.4 mg Lexiscan STRESS SYMPTOMS: Leg pressure, chest pain and neck pain. EJECTION FRACTION: > 70 % TECHNIQUE: The patient underwent pharmacologic stress with infusion of prescribed dose. Continuous ECG tracing was monitored during stress. Gated SPECT imaging was performed after stress and conventi onal SPECT imaging was performed at rest. The examination was performed on a SPECT/CT scanner, both attenuation and non-corrected datasets were reviewed. FINDINGS: Distribution: The maximum perfused segment at stress is in the anterolateral wall. Perfusion Study: The pattern of perfusion at stress is within normal limits. Gated Study: There are intact wall motion and wall thickening without hypokinetic or dyskinetic segm ents. The ejection fraction is calculated at > 70%. RISK CATEGORY: Low (<1% Annual Motality Rate) CONCLUSION: 1. No reversible defect observed to suggest acute ischemia. Electronically signed by: Willi Donaldson MD 04/11/2018 3:13 PM EDT
--- NOTE | 2018-04-11 15:22 | HHI.DCPOC ---
Discharge Care Plan Diagnosis: (1) Chest pain (2) Dehydration (3) HTN (hypertension) (4) Syncope (5) Hyponatremia (6) Acute kidney injury Goals to Promote Your Health * To prevent worsening of your condition and complications * To maintain your health at the optimal level Directions to Meet Your Goals Take your medications as prescribed Follow your dietary instruction Follow activity as directed Keep your appointments as scheduled Take your immunizations and boosters as scheduled If your symptoms worsen call your PCP, if no PCP go to Urgent Care Center or Emergency Room Smoking is Dangerous to Your Health. Avoid second hand smoke Call the 24-hour hour crisis hotline for domestic abuse at Marj Avalos April 11, 2018 15:22
[2018-04-11] MEDS: REMOVE OLD LIDOCAINE PATCH T-DERMAL SCH (21:00)
[2018-04-12 00:18] VITALS: BP 134/62; PULSE 79; RESP 18; TEMP 98.5; O2SAT 94
[2018-04-12 04:42] VITALS: BP 158/74; PULSE 67; RESP 18; TEMP 98.5; O2SAT 96
[2018-04-12 05:46] LABS: CALCIUM 8.3 MG/DL (8.5-10.1); CREATININE 0.96 MG/DL (0.50-1.00)
[2018-04-12] MEDS: INSULIN ASPART SUPPLEMENTAL SCALE SQ SCH (08:00)
[2018-04-12] MEDS: SPIRONOLACTONE 25 MG TAB PO SCH (08:15)
[2018-04-12] MEDS: PREGABALIN 100 MG CAP PO SCH (08:15)
[2018-04-12] MEDS: hydrALAZINE HCL 100 MG TAB PO SCH (08:15)
[2018-04-12] MEDS: APIXABAN 2.5 MG TABLET PO SCH (08:15)
[2018-04-12] MEDS: NIFEdipine 30 MG SUSTAINED RELEASE TAB PO SCH (08:15)
[2018-04-12] MEDS: HYDROXYCHLOROQUINE SULFATE 200 MG TAB PO SCH (08:15)
[2018-04-12] MEDS: CARBIDOPA/LEVODOPA 25 MG/100 MG TAB PO SCH (08:15)
[2018-04-12] MEDS: LIDOCAINE HCL 5% PATCH T-DERMAL SCH (08:15)
[2018-04-12] MEDS: DOCUSATE SODIUM 50 MG/SENNA 8.6 MG TAB PO SCH (08:15)
[2018-04-12] MEDS: predniSONE 10 MG TAB PO SCH (08:15)
[2018-04-12] MEDS: REMOVE OLD LIDOCAINE PATCH T-DERMAL SCH (08:16)
[2018-04-12] MEDS: SODIUM CHLORIDE 0.9% FLUSH 10 ML FLUSH IV FLUSH SCH (08:16)
[2018-04-12] MEDS: carBAMazepine 200 MG TAB PO SCH (08:16)
--- NOTE | 2018-04-12 10:09 | ECHRPT ---
Indication: HEART FAILURE CONCLUSIONS Normal left ventricular size. Wall thickness is normal. The left ventricular systolic function is hyperdynamic with an estimated ejection fraction in the ra nge of 65%. The left atrial size is mildly dilated. A patent foramen ovale is present with a cbot-no-zznis shunt demonstrated by color flow Doppler interrogation. (benign) Mitral annular calcification is present. Fpvd-ix-pdpvxjtz mitral valve regurgitation. There is trace tricuspid valve regurgitation. BP: / HR: Rhythm: MEASUREMENTS (Male / Female) Normal Values Technical Quality: 2D ECHO LV Diastolic Diameter PLAX 4.3 cm 4.2 - 5.9 / 3.9 - 5.3 cm LV Systolic Diameter PLAX 3.1 cm IVS Diastolic Thickness 1.3 cm 0.6 - 1.0 / 0.6 - 0.9 cm LVPW Diastolic Thickness 0.8 cm 0.6 - 1.0 / 0.6 - 0.9 cm LV Relative Wall Thickness 0.5 RV Internal Dim ED PLAX 2.4 cm LA Systolic Diameter LX 4.1 cm 3.0 - 4.0 / 2.7 - 3.8 cm M-MODE Aortic Root Diameter MM 3.1 cm AV Cusp Separation MM 1.8 cm DOPPLER MR Peak Velocity 684.0 cm/s MR Peak Gradient 187.1 mmHg TR Peak Velocity 255.0 cm/s TR Peak Gradient 26.0 mmHg Right Atrial Pressure 5.0 mmHg Pulmonary Artery Systolic Pressu 31.0 mmHg Right Ventricular Systolic Press 31.0 mmHg FINDINGS LEFT VENTRICLE Normal left ventricular size. Wall thickness is normal. The left ventricular systolic function is hyperdynamic with an estimated ejection fraction in the ra nge of 65%. RIGHT VENTRICLE Normal right ventricular size and systolic function. LEFT ATRIUM The left atrial size is mildly dilated. RIGHT ATRIUM The right atrial size is normal. ATRIAL SEPTUM A patent foramen ovale is present with a gwle-hv-jrdwd shunt demonstrated by color flow Doppler interrogation. (benign) AORTA The aortic root and proximal ascending aorta are normal in size on limited imaging. MITRAL VALVE Mitral annular calcification is present. Igyd-wr-owcfoedw mitral valve regurgitation. AORTIC VALVE Trileaflet aortic valve. No aortic valve stenosis or regurgitation. TRICUSPID VALVE There is trace tricuspid valve regurgitation. PULMONARY VALVE No pulmonary valve regurgitation or stenosis. VESSELS The inferior vena cava is normal in size. PERICARDIUM No pericardial effusion. Ashok Humphreys MD, FACC (Electronically Signed) Final Date:12 Apr 2018 10:07
[2018-04-12 11:21] VITALS: BP 169/73; PULSE 68; RESP 18; TEMP 98.5; O2SAT 98
--- NOTE | 2018-04-12 11:29 | HHI.PR ---
Subjective Remarks Follow-up on patient with nonexertional chest tightness with elevated BP followed by syncopal episode after taking nitro. Patient seen and examined. Patient states she feels well. She denies any complaints. She denies any dizziness, headache, vision changes or lightheadedness. She denies any chest pain or shortness of breath. She denies any fever chills. She denies any nausea, vomiting or abdominal pain. Objective Vitals Vital Signs Date Time Temp Pulse Resp B/P (MAP) Pulse Ox O2 Delivery O2 Flow Rate FiO2 04/12/18 11:21 98.5 68 18 169/73 (105) 98 04/12/18 04:42 98.5 67 18 158/74 (102) 96 04/12/18 00:18 98.5 79 18 134/62 (86) 94 04/11/18 20:16 98.8 80 16 124/59 (80) 92 04/11/18 18:01 161/78 (105) 04/11/18 16:55 97.9 84 16 172/76 (108) 97 04/11/18 14:03 97.7 86 16 137/61 (86) 99 I/O 04/11/18 04/11/18 04/11/18 04/12/18 04/12/18 04/12/18 07:00 15:00 23:00 07:00 15:00 23:00 Intake Total 2600 ml 240 ml Output Total 900 ml Balance 1700 ml 240 ml Intake Oral 750 ml 240 ml IV Total 1850 ml Output Urine Total 900 ml # Voids 2 Result Diagram: 04/11/18 0755 04/12/18 0453 Imaging Last Impressions Myocardial Perfusion Scan Nuc Med 04/11/18 0000 Signed Impressions: CONCLUSION: 1. No reversible defect observed to suggest acute ischemia. Chest X-Ray 04/10/18 7587 Signed Impressions: CONCLUSION: 1. Concern for mediastinal mass. Consider CT of the thorax with IV contrast to further evaluate. 2. Mild cardiomegaly. Chest CT 04/10/18 0000 Signed Impressions: CONCLUSION: 1. 5 mm left lower lobe pulmonary nodule; 6 month follow up recommended. 2. No evidence of acute cardiopulmonary process. 3. 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 4. Multiple hepatic cysts. Objective Remarks GENERAL: Well-developed well-nourished elderly female, in no acute distress. +Sunburn. Awake and alert. Appears comfortable. HEENT: NC/AT. PERRLA, EOMI. No scleral icterus or conjunctival pallor. No lid lag or facial droop. No nasal drainage. Airway patent. MMM. CARDIOVASCULAR: Regular rate and rhythm. No obvious murmurs to auscultation. No chest tenderness to palpation. RESPIRATORY: Nonlabored. Clear to auscultation. Breath sounds equal bilaterally. No wheezing or rhonchi appreciated. GASTROINTESTINAL: Abdomen soft, non-tender, nondistended. BS normal. MUSCULOSKELETAL: Extremities without clubbing, cyanosis, or edema. No obvious deformities. NEUROLOGICAL: Awake, alert and oriented x4. Able to move all extremities spontaneously. Motor and sensory functions grossly intact. No focal neurologic deficits. Normal speech. PSYCHIATRIC: Appropriate mood and affect. Normal judgment and insight. Procedures None A/P Problem List: (1) Syncope ICD Code: R55 - Syncope and collapse Status: Acute (2) Dehydration ICD Code: E86.0 - Dehydration (3) HTN (hypertension) ICD Code: I10 - Essential (primary) hypertension Assessment and Plan 82-year-old female with past medical history of hypertension, rheumatoid arthritis on immunosuppressive therapy with prednisone, Parkinson's, hx of DVT/ PE on Eliquis and trigeminal neuralgia admitted with chest tightness, elevated blood pressure and syncopal episode. Chest tightness in light of elevated BP Trops .03, .07, .02 -Cardiology consulted, appreciate assistance. Patient underwent MPS which was negative for ischemia. Cardiology cleared for discharge. -2D echo with EF65%, PFO noted -patient to follow up with her rn private duty at [facility] following discharge -Continue to monitor on cardiac telemetry Hypertension, uncontrolled -Continue patient on home dose of hydralazine, nifedipine, Aldactone and clonidine patch -Continue to monitor BP and adjust treatment accordingly Hyponatremia, chronic, asymptomatic -improved. D/C IVF EMY on suspected CKD, likely secondary to dehydration No baseline labs in system for comparison Creatinine 1.13, improved 0.96 -Avoid nephrotoxic agents -Continue to monitor kidney function History of DVT/PE 4 years ago -Continue patient on home dose of Eliquis Rheumatoid arthritis on chronic immunosuppressive therapy with prednisone and Plaquenil -continue patient's home dose of prednisone 10 mg daily Fibromyalgia Patient complaining of left-sided neck pain -Continue patient on home dose of Lyrica 100 mg -Trial of Lidoderm patch to left side of neck Parkinson's -Continue patient on home dose of Sinemet -PT eval/tx - no needs identified following discharge -fall precautions Trigeminal neuralgia -Continue patient on home dose of Tegretol Left lung nodule, incidental finding Patient and family are well aware and have been following as an outpatient Chest CT shows 5 mm left lower lobe pulmonary nodule; 6 month follow up recommended and large thyroid goiter -Recommend repeat CT in 6 months DVT prophylaxis -Patient is on Eliquis Discharge patient to home Condition on discharge: stable Heart healthy Diet as tolerated Ad Dia activity Rx written: Follow-up with primary care physician and rn private duty Problem Qualifiers (1) Syncope: Qualified Codes: R55 - Syncope and collapse Marj Avalos April 12, 2018 11:29
== END 2018-04-12 14:20 | disposition home or self-care (01) ==
LOC: NEPC 17:50 → NEDA 20:26 → NEPGCP 21:36
PROVIDERS: ADMIT Internal Medicine; ATTEND Internal Medicine
DX: R55 Syncope and collapse (principal); R07.2 Precordial pain; E87.1 Hypo-osmolality and hyponatremia; N17.9 Acute kidney failure, unspecified; E86.0 Dehydration; M06.9 Rheumatoid arthritis, unspecified; I11.9 Hypertensive heart disease without heart failure; I51.7 Cardiomegaly; G50.0 Trigeminal neuralgia; G20 Parkinson's disease; R11.2 Nausea with vomiting, unspecified; R06.02 Shortness of breath; M54.2 Cervicalgia; R94.39 Abnormal result of other cardiovascular function study; R41.9 Unspecified symptoms and signs involving cognitive functions and awareness; R79.1 Abnormal coagulation profile; E83.51 Hypocalcemia; M79.7 Fibromyalgia; Z86.73 Personal history of transient ischemic attack (TIA), and cerebral infarction without residual deficits
CPT/HCPCS: 71045; 71260; 78452; 80048; 80053; 80061; 82607; 82948; 83036; 83735; 84443; 84484; 85025; 85610; 85730; 93005; 93017; 93306; 96361; 96374; 97162; 99285; A9502; G0378; G8987; G8988; J2765; J2785; J7030; J7512; Q9967